=== PATIENT | male | born 1970 | race Caucasian/White ===

== ENCOUNTER 2021-06-11 17:41 | Emergency (ER) | payer BC, SELFPAY ==
[2021-06-11 18:40] VITALS: BP 152/95; PULSE 86; RESP 21; TEMP 36.9; O2SAT 99; BMI 34.2
[2021-06-11 19:11] LABS: UTC Influenza A Antigen Negative (Negative); UTC Influenza B Antigen Negative (Negative)
[2021-06-11 19:38] VITALS: BP 152/95; PULSE 86; RESP 21; TEMP 36.9; O2SAT 99
--- NOTE | 2021-06-11 19:38 | HMH.EDUTC ---
[facility] [place] Clinical Impression: Viral syndrome Disposition: Home, Self-Care Condition on Discharge: Good Instructions: Diarrhea, DI for Viral Syndrome, DI for Fever (Symptom) -- Adult Additional Instructions: *Monitor Temp, Over the counter Motrin or Tylenol as directed/as needed Tylenol every 4 hours and Motrin every 6 hours (as long as your family doctor has told you that you can take it) for fever or pain. and straight to ER if unable to lower temp less than 101.0 after medication given *Warm salt water gargles may help to soothe the throat *Throat Lozenges *Warm fluids like tea with honey may help to soothe the throat *Sleep elevated *Humidifier/Vaporizer Your throat swab was sent for culture. Those results are typically sent to your primary care. Be sure to follow up in 2-3 days with your family doctor/primary care physician if no improvement so they can review those result and treat if necessary. If you don?t have a primary care doctor, I recommend you get one but in the mean time, you will have to return to a walk in clinic Follow up IMMEDIATELY for new or worsening symptoms or no Noticeable improvement over the next 48-72 hours. 911 for difficulty breathing or swallowing You were tested for today for COVID19 your test result should be back in the next 24-48 hours, you may call to the [facility] to see if your test results are back in the next 48 hours [phone] [facility] hours are 9am-9pm You was given a handout with instructions for Self Quarantine and Self isolation for while you wait on test results and what to do if they are positive If you are positive the Health Dept will be contacting you also Referrals: Osvaldo Lew [Primary Care Provider] - As needed Time of Disposition: 19:39 Medical Decision Making - Fabrice Inquiry Pt receiving controlled substance: No Fabrice was queried for this patient: No Vital Signs: 06/11/21 18:40 Temperature 98.5 F Temperature Source Oral Pulse Rate [Right Brachial] 86 Respiratory Rate 21 Blood Pressure [Right Arm] 152/95 H Blood Pressure Mean [Right Arm] 114 Blood Pressure Source [Right Arm] Automatic Cuff Blood Pressure Position [Right Arm] Sitting 02 Sat by Pulse Oximetry 99 Oxygen Delivery Method Room Air - Lab Data Lab results reviewed: Yes: I reviewed the patient's lab results. Lab Results 06/11/21 18:50: Influenza Type A Ag Negative, Influenza Type B Ag Negative Orders (Tests/Meds): ORDERS Category Date Time Status Covid-19 Nasal PCR ([facility]) Routine Lab 06/11/21 18:52 [place] [facility] [place] - General Stated complaint: diarrhea, fever, headache Time Seen by Provider: 06/11/21 19:38 Mode of Arrival: Ambulatory Source of Information: Patient Limitations: No Limitations Description of Symptoms (Recalled from Triage Doc. by RN): PATIENT C/O FEVER, HEADACHE, AND DIARRHEA SINCE YESTERDAY HEENT Symptoms (Recalled from RN notes): Yes Resp Symptoms (Recalled from RN notes): No Skin Symptoms (Recalled from RN notes): No MS Symptoms (Recalled from RN notes): No Functional Status (Recalled from RN notes): WNL - History of Present Illness Provider Complaint: Patient states that he has been having low grade fever, headache and diarrhea States that he has had some sniffles but over all feeling achy all over States that is having similar symptoms so he come in to get checked for COVID and flu - Related Data Home Medications Medication Instructions Recorded Confirmed omeprazole 20 mg capsule,delayed 20 mg PO DAILY 30 Days #60 05/29/18 06/11/21 release Losartan/Hydrochlorothiazide 1 each PO DAILY 06/11/21 06/11/21 [Losartan-Hctz 50-12.5 mg Tab] atenoloL [Atenolol 50mg Tab] 50 mg PO DAILY 06/11/21 06/11/21 Allergies Allergy/AdvReac Type Severity Reaction Status Date / Time codeine Allergy Verified 05/29/18 16:38 - Worker's Comp Is this a Worker's Comp case?: No [facility] History - Hepatitis A Screen Drug use history?: No High ri
== END 2021-06-11 19:44 | disposition home or self-care (01) ==
PROVIDERS: Emergency Provider Nurse Practitioner; PCP Internal Medicine
DX: B34.8 Other viral infections of unspecified site (principal); R19.7 Diarrhea, unspecified; Z20.822 Contact with and (suspected) exposure to COVID-19; Z88.5 Allergy status to narcotic agent
CPT/HCPCS: 87804; 99202; G0463; U0003

== ENCOUNTER → 2021-06-12 12:14 | Outpatient (CLI) | payer BC, SELFPAY ==
[2021-06-12 12:17] LABS: Adenovirus F 40/41, stool Not Detected (NotDetected); Astrovirus Not Detected (NotDetected); Clostridium Difficile A/B, PCR Not Detected (NotDetected); Cryptosporidium Not Detected (NotDetected); Cyclospora Cayetanesis Not Detected (NotDetected); Entamoeba histolytica Not Detected (NotDetected); Enteroaggregative E coli Not Detected (NotDetected); Enteropathogenic E coli Not Detected (NotDetected); Enterotoxigenic E coli Not Detected (NotDetected); Giardia lamblia Not Detected (NotDetected); Norovirus Not Detected (NotDetected); Plesimonas Shigalloides, PCR Not Detected (NotDetected); Rotavirus A Not Detected (NotDetected); Salmonella, PCR Not Detected (NotDetected); Sapovirus Not Detected (NotDetected); Shiga-like toxin E coli Not Detected (NotDetected); Shigella Enterovasive E coli Not Detected (NotDetected); Vibrio Cholerae Not Detected (NotDetected); Vibrio, PCR Not Detected (NotDetected); Yersinia Entercolitica, PCR Not Detected (NotDetected)
[2021-06-12 15:23] LABS: Campylobacter Detected (NotDetected)
== END ==
PROVIDERS: Visit Provider Nurse Practitioner
DX: R19.7 Diarrhea, unspecified (principal); A04.5 Campylobacter enteritis
CPT/HCPCS: 87507

== ENCOUNTER 2024-05-27 15:10 | Outpatient (CLI) | payer OTHER, SELFPAY ==
[2024-05-27 15:20] LABS: Microscopic, Urine URINE MICROSCOPIC (MICROSCOPIC)
--- NOTE | 2024-05-27 15:35 | ECG_ITS ---
APPROVED REPORT Exam: Resting ECG HR:63 bpm ECG Measurements Heart Rate 63 AXES WY 164 P 38 QRSd 98 QRS 3 QT 419 T 9 QTc 426 Conclusion SINUS RHYTHM NORMAL ECG UNCONFIRMED REPORT Electronically signed by : Luis Gonzalez MD 05/29/2024 08:46:47
[2024-05-27 15:43] LABS: Basophils # 0.1 K/mm3 (0-0.2); Eosinophils # 0.1 K/mm3 (0.0-0.4); Eosinophils % 1.2 % (0.1-12.0); Hematocrit 46.6 % (42.0-52.0); Hemoglobin 16.2 g/dL (14.1-18.0); Lymphocytes # 1.8 K/mm3 (0.7-4.5); Lymphocytes % 23.2 % (10-50); Mean Corpuscular HGB Conc 34.7 g/dL (31.8-35.4); Mean Corpuscular Hemoglobin 33.9 pg (27.0-31.2); Mean Corpuscular Volume 97.8 fl (80-94); Mean Platelet Volume 7.6 fl (7.4-10.4); Monocytes # 0.5 K/mm3 (0.1-1.0); Monocytes % 5.9 % (1.7-9.3); Neutrophils # 5.3 K/mm3 (1.8-7.8); Neutrophils % 68.6 % (37.0-80.0); Platelet Count 207 K/mm3 (142-424); Red Blood Count 4.76 M/mm3 (4.60-6.20); White Blood Count 7.7 K/mm3 (4.8-10.8)
[2024-05-27 15:46] LABS: Appearance,Urine CLEAR (Clear); Bilirubin,Urine Negative (Negative); Blood, Urine Negative (Negative); Color,Urine YELLOW (Yellow); Glucose,Urine (UA) Negative (Negative); Ketones,Urine Negative (Negative); Leukocyte Esterase,Urine Negative (Negative); Nitrate,Urine Negative (Negative); Protein,Urine Negative (Negative); Specific Gravity, Urine 1.015 (1.005-1.030)
[2024-05-27 16:05] LABS: Bacteria,Urine Trace /lpf; Squamous Epithelial Cell,Urine Occasional #/hpf (0-5)
[2024-05-27 16:20] LABS: Chloride 105 mmol/L (98-107); Sodium 138 mmol/L (136-145)
[2024-05-27 16:21] LABS: Potassium 4.2 mmoL/L (3.5-5.1)
[2024-05-27 16:24] LABS: Anion Gap 12.2 mEq/L (5-15); Blood Urea Nitrogen 18 mg/dl (9-20); Calcium 9.5 mg/dl (8.4-10.2); Carbon Dioxide 25 mmol/L (22.0-30.0); Estimated Glomerular Filt Rate 78 ml/min (>60); GFR (African American) 95 ML/MIN (>60); Glucose 108 mg/dl (74-100)
== END 2024-05-27 23:59 | disposition home or self-care (01) ==
LOC: LAB 15:13
PROVIDERS: Visit Provider Surgery
DX: K40.90 Unilateral inguinal hernia, without obstruction or gangrene, not specified as recurrent (principal)
CPT/HCPCS: 36415; 80048; 81001; 85025; 93005

== ENCOUNTER 2024-05-28 10:26 | Day surgery (SDC) | payer OTHER, SELFPAY ==
[2024-05-28] VITALS (9 sets, daily range): BP systolic 115–154; BP diastolic 65–88; PULSE 59–80; RESP 13–18; TEMP 36.3–37.6; O2SAT 93–97; BMI 34.2
[2024-05-28] MEDS: LACTATED RINGERS 1000ML 1,000 ML 25 ML IV (10:38)
--- NOTE | 2024-05-28 11:34 | EXP.ANES.CKL ---
[facility] Disclaimer: The information contained in this section may have been updated after the patient was seen, as this information can be updated by other users. Medical History (Updated 05/28/24 @ 10:43 by Leeann Adames RN) Hypertension History of gastroesophageal reflux (GERD) Right inguinal hernia Social History (Updated 05/28/24 @ 10:42 by Leeann Adames RN) Smoking Status: Never smoker alcohol intake: current substance use type: denies use current occupational status: employed and other Travel in the last 8 weeks: None [facility] Anesthesia Checklist Patient Identification Patient Identification: Arm Band, Family and Verbal (Name & ) Structural Data Admitted From: Home Planned Operative Procedure/s: Open RIGHT IHR Consent for Planned Operative Procedure(s) Verified: Yes Verified Documents: Surgical Consent and History and Physical NPO Status Verified Time NPO: 16:30 Chart Verification Results Verified: CBC, BMP and ECG Additional verifications Patient : No Anesthesia Reactions: No Hx Blood Transfusions: No Blood Transfusion Reaction: No Cardiovascular Assessment Heart Sounds: S1 & S2 Pulse Rhythm: Irregular Peripheral Edema: No Airway Assessment Mallampati Score:: Class II C-Spine Mobility Assessed: Yes (FROM) TMJ Mobility Assessed: Yes Dentition: Good Dentition (Nothing loose per pt.) Neurological Assessment Level of Consciousness: Awake, Alert, Appropriate and Follows Commands Hx Seizures: No Numbness or tingling in extremities: No Anesthesia Plan Anesthesia Risk discussed: Yes Anesthesia Plan: Verified ASA Class: III Anesthesia Type: General
[2024-05-28] MEDS: CEFAZOLIN SODIUM 2 GM in 0.9 % SODIUM CHLORIDE 100 ML IV (11:51)
[2024-05-28] MEDS: LIDOCAINE 1% 20ML MDV 20 ML (12:11)
--- NOTE | 2024-05-28 13:33 | EXP.OP.NOTE ---
Date of procedure: 05/28/24 Pre-op Diagnosis:: Right inguinal hernia Post-op Diagnosis:: Same Procedure performed:: Open right inguinal hernia Surgeon:: Matthew Urbina MD VEIN ACCESS TECHNICIAN:: Aditi Henry Anesthesia: GETA Estimated blood loss (mL): 15 Operative findings:: Complex pantaloon hernia Operative note:: After informed consent was obtained the patient was taken to the operating room and placed in the supine position. General anesthesia was induced and his abdomen and groin/scrotum were prepped and draped in a sterile fashion. After infiltration with local anesthetic an oblique right groin incision was made. The deep subcutaneous tissue was dissected through José Luis's fascia to the level of the external aponeurosis with electrocautery. The external aponeurosis was sharply opened to the level of the external ring. The contents of the canal were carefully elevated. Evaluation revealed a significant complex pantaloon defect with essentially no floor to the canal and a fairly large indirect defect. The hernia sac was carefully dissected free from surrounding tissue prior to reduction into the abdominal cavity. An extra-large PerFix plug was then secured in position with interrupted Ethibond. The PerFix overlay was then secured to the shelving edge inferiorly and fascial margin superiorly with interrupted Ethibond. The external aponeurosis was approximated with running Vicryl suture. José Luis's fascia was closed in the same manner. Skin was then reapproximated utilizing the INSORB stapler. Dressings were applied and the patient was transferred to recovery in stable condition. Condition: stable Disposition: PACU Specimens:: None Complications:: No immediate
--- NOTE | 2024-05-28 13:35 | EXP.ANES.I ---
[facility] Anesthesia Record Part I Anesthesia Record I Intake, IV Amount: 1,000 Hydration: Adequate Estimated blood loss (mL): 15 Urine output (mL): 1,000 Blood Pressure: 136/65 SaO2: 93 Pulse Rate: 78 Airway Patency: Patent Respiratory Rate: 18 Temperature: 99.6 F Patient is:: Drowsy Stable to PACU at:: 13:30
--- NOTE | 2024-05-29 14:35 | EXP.ANES.II ---
[facility] Anesthesia Record Part II Anesthesia Record Part II Discharge Time: 14:00 Destination: Surgical Day Care (OP Surgery) PACU nurse assessment reviewed?: Yes Patient Condition:: Good Anesthesia Complications:: None Swallowing reflex intact?: Yes Airway Patency: Patent Cyanosis?: No Blood Pressure: 154/70 SaO2: 97 Respiratory Rate: 14 Pulse Rate: 80 Temperature: 97.9 F Mental Status: Alert & Oriented Pain level:: 2 Nausea and/or vomitting:: None Intake, IV Amount: 0 Hydration: Adequate
[2024-05-29 14:36] VITALS: BP 154/70; PULSE 80; RESP 14; TEMP 36.6; O2SAT 97
== END 2024-05-28 14:42 | disposition home or self-care (01) ==
PROVIDERS: Visit Provider Surgery
PROC: (CPT 49505; principal; 2024-05-28 12:00)
DX: K40.90 Unilateral inguinal hernia, without obstruction or gangrene, not specified as recurrent (principal)
CPT/HCPCS: 49505; 96374; J0131; J0690; J1100; J1885; J2250; J2405; J3010; J7120

== ENCOUNTER 2024-06-26 10:24 | Outpatient (CLI) | payer OTHER, SELFPAY ==
[2024-06-26 10:35] VITALS: BP 125/77; PULSE 58; RESP 17; O2SAT 95
[2024-06-26] MEDS: KETOROLAC 30MG/ML VIAL 30 MG (10:35)
== END 2024-06-26 11:10 | disposition home or self-care (01) ==
LOC: INF 10:25
PROVIDERS: Visit Provider Surgery
DX: K40.90 Unilateral inguinal hernia, without obstruction or gangrene, not specified as recurrent (principal)
CPT/HCPCS: 96372; J1885